=== PATIENT | female | born 1990 | race African-American/Black ===

== ENCOUNTER 2024-11-18 14:19 | Emergency (ER) | payer MEDICAID ==
[~2024-11-18] VITALS: Ht 165.1 cm; Wt 70.0 kg
[2024-11-18 14:23] VITALS: O2SAT 99
[2024-11-18 15:16] LABS: BASOPHILS % 0.5 % (0.0-2.0); EOSINOPHILS % 1.5 % (0.0-5.0); HEMATOCRIT. 37.7 % (36.0-48.0); HEMOGLOBIN. 12.2 g/dL (12.0-16.0); LYMPHOCYTES % 30.8 % (20.0-50.0); MEAN PLATELET VOLUME 7.2 fl (7.4-10.4); MONOCYTES % 6.9 % (2.0-8.0); NEUTROPHILS % 60.3 % (40.0-76.0); PLATELET 328 x1000/uL (130-400); RED BLOOD CELL COUNT 4.06 mill/uL (4.2-5.4); RED CELL DISTRIBUTION WIDTH 14.9 % (11.6-14.6)
[2024-11-18 15:35] LABS: CREATININE 0.9 mg/dL (0.6-1.0)
[2024-11-18 15:36] LABS: ETHANOL BLOOD 93 mg/dL (<10); UREA NITROGEN BLOOD 12 mg/dL (9-23)
[2024-11-18 15:37] LABS: ASPARTATE AMINOTRANSFERASE 24 IU/L (<34)
[2024-11-18 15:38] LABS: BILIRUBIN DIRECT 0.2 mg/dL (<=3.0); BILIRUBIN TOTAL 0.7 mg/dL (0.1-1.0); PROTEIN TOTAL 6.6 g/dL (6.0-8.3)
[2024-11-18 15:45] LABS: HCG SCREEN NEGATIVE
[2024-11-18] MEDS ORDERED: POTASSIUM CHLORIDE 20MEQ/PACKET PO NR (16:15)
[2024-11-19 00:46] LABS: *AMPHETAMINES SCREEN URINE PRESUMPTIVE POSITIVE (NEGATIVE); *BARBITURATES SCREEN URINE NEGATIVE (NEGATIVE); *BENZODIAZEPINES SCREEN URINE PRESUMPTIVE POSITIVE (NEGATIVE); *COCAINE SCREEN URINE PRESUMPTIVE POSITIVE (NEGATIVE); CANNABINOID URINE SCREEN PRESUMPTIVE POSITIVE (NEGATIVE); ECSTASY MDMA SCREEN URINE CONF.TEST INDICATED (NEGATIVE); METHADONE URINE SCREEN NEGATIVE (NEGATIVE); OPIATES URINE SCREEN NEGATIVE (NEGATIVE); PHENCYCLIDINE URINE SCREEN PRESUMTIVE POSITIVE (NEGATIVE)
[2024-11-19] MEDS: POTASSIUM CHLORIDE 20MEQ/PACKET PO NR (00:50)
[2024-11-19] MEDS: OLANZAPINE 10 MG/VIAL IM ONE (07:08)
[2024-11-19] MEDS: LORAZEPAM 2MG/ML UD SYRINGE IM NR (07:09)
[2024-11-19 21:12] LABS: CLARITY URINE CLOUDY (CLEAR); COLOR URINE YELLOW (YELLOW); GLUCOSE URINE NEGATIVE (NEGATIVE); KETONES URINE NEGATIVE (NEGATIVE); LEUKOCYTE ESTERASE URINE 3+ (NEGATIVE); NITRITE URINE NEGATIVE (NEGATIVE); OCCULT BLOOD URINE NEGATIVE (NEGATIVE); PH URINE 8.5 (4.5-8.0); PROTEIN URINE NEGATIVE (NEGATIVE); SPECIFIC GRAVITY URINE 1.021 (1.005-1.030); UROBILINOGEN URINE 0.2 E.U./dL (0.2-1.0)
[2024-11-19 21:33] LABS: BACTERIA URINE 4+; RBC URINE 0-2 /hpf (0-2); SQUAMOUS EPITHELIAL CELL URINE 1+ /lpf (RARE/1+); TRIPLE PHOSPHATE CRYSTAL URINE 2+ /lpf; WBC URINE 50-100 /hpf (0-2)
[2024-11-19] MEDS: CEPHALEXIN 250MG CAPSULE PO NR (22:13)
[2024-11-20] MEDS: CEPHALEXIN 250MG CAPSULE PO SCH (09:00)
[2024-11-20] MEDS ORDERED: HYDROXYZINE 25MG TABLET PO PRN (10:30)
[2024-11-20 11:08] VITALS: BP 113/61; PULSE 72; RESP 18; TEMP 36.7; O2SAT 99
== END 2024-11-20 11:40 ==
LOC: ER 14:19
DX: F31.9 Bipolar disorder, unspecified (principal); F20.9 Schizophrenia, unspecified; Z79.899 Other long term (current) drug therapy; Z20.822 Contact with and (suspected) exposure to COVID-19
CPT/HCPCS: 80076; 80305; 80048; 81003; 80307; 80329; 80320; 84703; 85025; 87086; 36415; 99285; 87426; 87186; 87077; 96372; J3490; J2060; G0480